=== PATIENT | female | born 1990 | race Two or more races ===

== ENCOUNTER 2024-11-08 06:30 | Day surgery (SDC) | payer MEDICAID, SELFPAY ==
[2024-11-06 08:45] VITALS: BMI 25.9
[2024-11-06 09:32] LABS: Basophils % (Auto) 0 % (0-2.5); Eosinophils # (Auto) 0.4 Thou/mm3 (0.0-0.5); Eosinophils % (Auto) 7 % (0-10); Hematocrit 39.6 % (36.0-46.0); Hemoglobin 13.1 g/dL (12.0-16.0); Immature Granulocytes % (Auto) 0 % (0-0); Lymphocytes # (Auto) 2.1 Thou/mm3 (1.0-4.8); Lymphocytes % (Auto) 37 % (10-50); Mean Corpuscular HGB Conc 33.1 g/dl (31.0-37.0); Mean Corpuscular Hemoglobin 28.2 pg (25.0-35.0); Mean Corpuscular Volume 85 fL (80-100); Monocytes # (Auto) 0.4 Thou/mm3 (0.0-0.8); Monocytes % (Auto) 7 % (0-12); Neutrophils # (Auto) 2.8 Thou/mm3 (1.8-7.7); Neutrophils % (Auto) 49 % (37-80); Nucleated Red Blood Cell % 0 /100 WBC (0); Platelet Count 234 Thou/mm3 (140-440); RDW Standard Deviation 37.9 fL (36.4-46.3); Red Blood Count 4.64 Miln/mm3 (4.00-5.20); White Blood Count 5.8 Thou/mm3 (3.6-11.0)
[2024-11-06 10:09] LABS: Anion Gap 8 (7-16); BUN/Creatinine Ratio 21 Ratio (12-20); Beta HCG,Quantitative 1 mIU/mL (<5.0); Blood Urea Nitrogen 15 mg/dL (9-23); Carbon Dioxide 24.6 mMol/L (20.0-31.0); Chloride 107 mMol/L (98-107); Creatinine (Component) 0.7 mg/dL (0.6-1.3); Estimated Creatinine Clearance 111.7 mL/min (>60); Glucose 97 mg/dL (74-106); Osmolality,Calculated 280 (275-295); Potassium 4.2 mMol/L (3.4-5.1); Sodium 140 mMol/L (136-145); eGFR > 60 See Note
[2024-11-08] VITALS (8 sets, daily range): BP systolic 89–119; BP diastolic 52–83; PULSE 50–84; RESP 12–20; TEMP 36.3–36.7; O2SAT 96–100; BMI 25.2
[2024-11-08] MEDS: RINGERS LACTATED 1000 ML 1,000 ML 20 ML IV (06:45)
--- NOTE | 2024-11-08 09:03 | PD.SUROPNT ---
Date of Procedure 11/08/24 Pre Op Diagnosis Incarcerated umbilical hernia Post Op Diagnosis Incarcerated umbilical hernia Procedure Primary repair of incarcerated umbilical hernia Findings An approximately 1 cm umbilical hernia defect with incarcerated omentum and preperitoneal fat Procedure Description Patient brought into the operating room and supine position. After administration of general endotracheal anesthesia, patient's abdomen prepped and draped in standard surgical manner. After administration of local anesthesia, approximately 3 cm semicircular incision was made above the umbilicus and dissection was deepened into soft tissue. The umbilicus was detached from anterior abdominal fascia. The hernia sac was identified and circumferentially dissected out surrounding tissue. The hernia sac was opened, the contents that were incarcerated omentum and preperitoneal fat were excised. The remainder of the omentum was reduced. The fascia was cleared from surrounding tissue. The fascia was primarily closed with interrupted sutures using 0 Prolene. The umbilicus was reattached into anterior abdominal fascia. Soft tissue reapproximated with interrupted sutures using 2-0 Vicryl and the incision was closed with 4-0 Monocryl in subcuticular fashion. Dermabond applied. Patient tolerated procedure well. She was extubated, breathing spontaneously and without difficulty and was transferred to postanesthesia care in stable condition peer instruments, needles and sponge counts were reported to be correct x 2. Anesthesia GETA and local Pathology / specimen Other (Hernia sac) Estimated Blood Loss 2 Condition Stable Disposition PACU Surgeon Jimy Soares MD Surgical Staff Operation Date: 11/08/24 08:30 Case Staff CHARCOAL BURNER BEEHIVE KILN: Lex Mayer RNdesizing machine offbearer: Soniya Brand
[2024-11-08] MEDS: fentaNYL CIT INJ 50 mCg/ML AMP 2ML IV (09:47)
[2024-11-08] MEDS: ACETAMINOPHEN IVPB 1,000 MG/100 ML VIAL 250 MG IV (09:51)
--- NOTE | 2024-11-08 10:32 | SUR.PHASEII ---
0913: pt arrived to PACU via gurney with oral airway present, breathing unlabored, dressing to abdomen clean, dry, and intact, report from Tram OLIVAS, Sean WESLEY, and Anupam TUBER HELPER 0950: pt tolerating ice chips without difficulty swallowing or n/v 1032: pt awake, alert, able to follow commands, breathing unlabored, dressing to abdomen clean, dry, and intact, abdominal binder in place, pt able to dress with assistance and ambulate with steady gait to wheelchair, discharge instructions given with spouse present, all questions answered pt discharged via wheelchair with all belongings and copies of discharge paperwork.
== END 2024-11-08 10:32 | disposition home or self-care (01) ==
PROVIDERS: PCP Internal Medicine; Referring Provider Surgery; Visit Provider Surgery
PROC: (CPT 49592; principal; 2024-11-08 08:30)
DX: K42.0 Umbilical hernia with obstruction, without gangrene (principal)
CPT/HCPCS: 49592; 36415; 80048; 84702; 85025; A4217; A4649; J0131; J1100; J2250; J2371; J2405; J2704; J3010; J3490; J7120; A9270; J1596

== ENCOUNTER → 2025-05-17 | Outpatient (CLI) | payer BC, SELFPAY ==
[2025-05-17 09:26] LABS: Collection Type, Urine Clean Catch
[2025-05-17 09:47] LABS: Basophils # (Auto) 0.0 Thou/mm3 (0.0-0.2); Basophils % (Auto) 0 % (0-2.5); Eosinophils # (Auto) 0.1 Thou/mm3 (0.0-0.5); Eosinophils % (Auto) 2 % (0-10); Hematocrit 38.2 % (36.0-46.0); Hemoglobin 12.5 g/dL (12.0-16.0); Immature Granulocytes Auto 0.01 Thou/mm3 (0.00-0.00); Lymphocytes # (Auto) 1.6 Thou/mm3 (1.0-4.8); Lymphocytes % (Auto) 30 % (10-50); Mean Corpuscular HGB Conc 32.7 g/dl (31.0-37.0); Mean Corpuscular Hemoglobin 27.1 pg (25.0-35.0); Mean Corpuscular Volume 83 fL (80-100); Monocytes # (Auto) 0.5 Thou/mm3 (0.0-0.8); Monocytes % (Auto) 9 % (0-12); Neutrophils # (Auto) 3.0 Thou/mm3 (1.8-7.7); Neutrophils % (Auto) 58 % (37-80); Nucleated Red Blood Cell # 0.00 Thou/mm3 (0.00-0.00); Nucleated Red Blood Cell % 0 /100 WBC (0); Platelet Count 233 Thou/mm3 (140-440); RDW Standard Deviation 37.5 fL (36.4-46.3); Red Blood Count 4.62 Miln/mm3 (4.00-5.20); White Blood Count 5.2 Thou/mm3 (3.6-11.0)
[2025-05-17 09:53] LABS: Bacteria,Urine Rare; Bilirubin,Urine Negative (Negative); Blood,Urine Trace (Negative); Clarity,Urine Clear (Clear/Hazy); Color,Urine Lt-Yellow (Lt Yel-Yel); Glucose, Urine Negative (Negative); Ketones,Urine Negative (Negative); Leukocyte Esterase,Urine Negative (Negative); Nitrite,Urine Negative (Negative); PH,Urine 6.0 (5.0-7.0); Protein,Urine Negative (Neg - Trace); RBC,Urine 1 /hpf (0-3); Specific Gravity,Urine 1.012 (1.001-1.035); Squamous Epithelial Cell,Urine 5 /hpf (0-5); Urobilinogen,Urine Negative mg/dL (0.0-1.0); WBC,Urine 1 /hpf (0-5)
[2025-05-17 10:09] LABS: Alanine Aminotransferase 13 U/L (10-49); Albumin, Serum 4.8 gm/dL (3.5-5.0); Albumin/Globulin Ratio 2.0 (1.2-2.2); Alkaline Phosphatase 81 U/L (46-116); Anion Gap 10 (7-16); Aspartate Amino Transferase 15 U/L (0-34); BUN/Creatinine Ratio 15 Ratio (12-20); Bilirubin,Total 0.7 mg/dL (0.3-1.2); Blood Urea Nitrogen 9 mg/dL (9-23); Calcium 9.0 mg/dL (8.3-10.6); Calcium (Corrected) 9.0 mg/dL (8.5-10.1); Carbon Dioxide 24.5 mMol/L (20.0-31.0); Cardiac Risk Estimate 3.3 RATIO (3.7-5.6); Chloride 106 mMol/L (98-107); Cholesterol 162 mg/dL (132-200); Creatinine (Component) 0.6 mg/dL (0.6-1.3); Globulin 2.4 gm/dL (2.3-3.5); Glucose 99 mg/dL (74-106); HDL Cholesterol 49 mg/dL (40-60); LDL Cholesterol,Calculated 97 mg/dL (0-130); Osmolality,Calculated 278 (275-295); Potassium 4.3 mMol/L (3.4-5.1); Sodium 140 mMol/L (136-145); Total Protein 7.2 gm/dL (5.7-8.2); Triglycerides 78 mg/dL (30-150); eGFR > 60 See Note
== END | disposition home or self-care (01) ==
PROVIDERS: PCP Family Medicine; Referring Provider Family Medicine; Visit Provider Family Medicine
DX: Z00.00 Encounter for general adult medical examination without abnormal findings (principal); D64.9 Anemia, unspecified
CPT/HCPCS: 36415; 80053; 80061; 81001; 85025